=== PATIENT | male | born 1970 | race African-American/Black ===

== ENCOUNTER 2016-07-09 23:35 | Observation (INO) | payer OTHER ==
[2016-07-09] MEDS ORDERED: DUONEB INH ONE ×2 (23:45)
[2016-07-10] VITALS (7 sets, daily range): BP systolic 147–172; RESP 16–24; TEMP 97.9–99.1; Ht 177.8 cm
[2016-07-10] MEDS ORDERED: NEB-ALBUTEROL 2.5 MG/3 ML INH ONE ×3 (00:15→00:30)
[2016-07-10] MEDS ORDERED: LORAZEPAM 2 MG/ML VIAL ONE (01:20)
[2016-07-10] MEDS ORDERED: ONDANSETRON 4 MG VIAL IV PRN (03:50)
[2016-07-10] MEDS ORDERED: SALINE FLUSH 10 ML FLUSH PRN (03:50)
[2016-07-10] MEDS: NEB-ATROVENT INH SCH ×5 (03:50→22:38)
[2016-07-10] MEDS: NEB-ALBUTEROL 2.5 MG/3 ML INH PRN ×5 (04:13→22:38)
[2016-07-10] MEDS: SODIUM CHLORIDE 0.9% FLUSH BAG 500 ML IV SCH (06:42)
[2016-07-10] MEDS: METHYLPRED SOD SUCC 125 MG/2 ML VIAL IV SCH ×2 (08:21→20:30)
[2016-07-10] MEDS: SALINE FLUSH 10 ML FLUSH SCH ×2 (08:21→20:29)
[2016-07-11] MEDS: SODIUM CHLORIDE 0.9% FLUSH BAG 500 ML IV SCH (01:52)
[2016-07-11] MEDS: NEB-ALBUTEROL 2.5 MG/3 ML INH PRN ×3 (02:22→14:31)
[2016-07-11 03:33] VITALS: BP_SYST 135; RESP 16; TEMP 99.2
[2016-07-11] MEDS: NEB-ATROVENT INH SCH ×4 (06:37→22:37)
[2016-07-11 07:26] VITALS: BP_SYST 122; RESP 16; TEMP 98
[2016-07-11] MEDS: METHYLPRED SOD SUCC 125 MG/2 ML VIAL IV SCH (08:25)
[2016-07-11] MEDS: SALINE FLUSH 10 ML FLUSH SCH ×2 (08:26→20:00)
[2016-07-11 12:07] VITALS: BP_SYST 162; RESP 18; TEMP 98.4
[2016-07-11] MEDS ORDERED: PREDNISONE 20 MG TAB PO ONE (12:30)
[2016-07-11] MEDS ORDERED: MISSING DOSE XX ONE (13:20)
[2016-07-11] MEDS: AZITHROMYCIN 250 MG TAB PO SCH (13:35)
[2016-07-11 16:34] VITALS: BP_SYST 133; RESP 20; TEMP 97.7
[2016-07-11] MEDS: NEB-BROVANA 15 MCG/2 ML INH SCH (18:21)
[2016-07-11] MEDS: NEB-BUDESONIDE 0.5 MG INH SCH (18:21)
[2016-07-11 19:18] VITALS: BP_SYST 149; RESP 18; TEMP 97.8
[2016-07-11 23:51] VITALS: BP_SYST 152; RESP 20; TEMP 98.1
[2016-07-12 03:08] VITALS: BP_SYST 148; RESP 18; TEMP 98.5
[2016-07-12] MEDS ORDERED: MISSING DOSE XX ONE (03:40)
[2016-07-12] MEDS: SODIUM CHLORIDE 0.9% FLUSH BAG 500 ML IV SCH (06:00)
[2016-07-12] MEDS: NEB-BUDESONIDE 0.5 MG INH SCH (07:10)
[2016-07-12] MEDS: NEB-ATROVENT INH SCH (07:10)
[2016-07-12] MEDS: NEB-BROVANA 15 MCG/2 ML INH SCH (07:10)
[2016-07-12 07:40] VITALS: BP_SYST 128; RESP 18; TEMP 98.2
[2016-07-12] MEDS ORDERED: PREDNISONE 20 MG TAB PO SCH (09:00)
[2016-07-12] MEDS: SALINE FLUSH 10 ML FLUSH SCH (09:30)
[2016-07-12] MEDS: AZITHROMYCIN 250 MG TAB PO SCH (09:31)
[2016-07-12 11:22] VITALS: BP_SYST 140; BP_SYST 145; RESP 20; TEMP 97.7
[2016-07-12 14:22] VITALS: BP_SYST 140; RESP 20; TEMP 97.7
[2016-07-12 14:24] VITALS: BP_SYST 140; RESP 20; TEMP 97.7
== END 2016-07-12 13:54 | disposition home or self-care (01) ==
LOC: ENRESERVTM → ENRESERVDT → ENRESERV → ER 23:35 → ENPENDDIS 23:36 → EMR 23:36 → 4THE 07-10 03:20 → UNDODISOB 07-11 15:09 → 4NT 07-11 16:00 → 4THE 07-11 16:00 → 4THW 07-11 16:58 → 4NT 07-11 16:58 → 4THE 07-11 16:58
PROVIDERS: ADMIT Family Medicine; ATTEND Family Medicine
DX: J44.1 Chronic obstructive pulmonary disease with (acute) exacerbation (principal); F41.9 Anxiety disorder, unspecified; F17.210 Nicotine dependence, cigarettes, uncomplicated; Z71.6 Tobacco abuse counseling; J96.02 Acute respiratory failure with hypercapnia
CPT/HCPCS: 36415; 36600; 71010; 71020; 80048; 80053; 80307; 82553; 82803; 83880; 84484; 85025; 85379; 85610; 85730; 87804; 93005; 94640; 94644; 94799; 96374; 96376; 99219; 99232; 99239